=== PATIENT | female | born 1985 | race Caucasian/White ===

== ENCOUNTER → 2016-09-20 | Outpatient (CLI) | payer MEDICAID ==
[~2016-09-20] MED LIST: FAMO20; IBUP-232 PO; OXYC-360 PO; OXYC1TAB63 PO; PRENTAB62 PO
== END ==
LOC: HPND 13:08
PROVIDERS: ATTEND Obstetrics & Gynecology
DX: O26.849 Uterine size-date discrepancy, unspecified trimester (principal); O99.330 Smoking (tobacco) complicating pregnancy, unspecified trimester
CPT/HCPCS: 76816

== ENCOUNTER 2016-10-25 09:57 | Inpatient (IN) | payer MEDICAID ==
[2016-10-25] VITALS (37 sets, daily range): BP systolic 97–143; BP diastolic 43–102; PULSE 56–88; RESP 2–18; TEMP 97.6–98.4
[~2016-10-25] VITALS: Ht 160 cm; Wt 62.6 kg
[~2016-10-25 09:57] MED LIST changes: -IBUP-232 PO; -OXYC1TAB63 PO
[2016-10-25] MEDS ORDERED: OXYTOCIN 30 UNITS-500ML PREMIX 500 ML ONE (10:52)
[2016-10-25] MEDS ORDERED: LACTATED RINGER'S 1000 ML INJ 1,000 ML IV SCH (11:00)
[2016-10-25] MEDS ORDERED: LACTATED RINGER'S 1000 ML INJ 1,000 ML IV PRN (11:18)
[2016-10-25 11:29] LABS: AUTOMATED NEUTROPHIL # 9.7 TH/MM3 (1.8-7.7); BASOPHIL % 0.4 % (0.0-2.0); EOSINOPHIL # 0.1 TH/MM3 (0-0.4); EOSINOPHIL % 1.1 % (0.0-4.0); HEMATOCRIT 35.5 % (35.0-46.0); HEMO FLAGS DIFF FINAL; LYMPH % 18.2 % (9.0-44.0); LYMPHOCYTE # 2.4 TH/MM3 (1.0-4.8); MEAN CELL VOLUME 86.7 FL (80.0-100.0); MEAN CORPUSCULAR HEMOGLOBIN 29.9 PG (27.0-34.0); MEAN CORPUSCULAR HGB CONC 34.5 % (32.0-36.0); MONO % 7.5 % (0.0-8.0); NEUT % 72.8 % (16.0-70.0); PLATELET COUNT 168 TH/MM3 (150-450); RED CELL DISTRIBUTION WIDTH 13.4 % (11.6-17.2); WHITE BLOOD COUNT 13.3 TH/MM3 (4.0-11.0)
[2016-10-25] MEDS ORDERED: SODIUM CHLORID 0.9% 500 ML INJ 500 ML IV PRN (11:30)
[2016-10-25] MEDS ORDERED: OXYTOCIN 30 UNITS-500ML PREMIX 500 ML IV ONE (11:30)
[2016-10-25] MEDS ORDERED: LIDOCAINE HCL 1% 50 ML VIAL INFIL PRN (11:30)
[2016-10-25] MEDS ORDERED: LIDOCAINE HCL 1% 50 ML VIAL I-DERMAL PRN (11:30)
[2016-10-25] MEDS ORDERED: MINERAL OIL 10 ML VIAL TOPICAL PRN (11:30)
[2016-10-25] MEDS ORDERED: CITRIC ACID-SODIUM CITRATE LIQ 30 ML UDC PO SCH (11:30)
[2016-10-25] MEDS ORDERED: SODIUM CHLOR 0.9% 1000 ML INJ 1,000 ML IV PRN (11:38)
[2016-10-25 11:48] LABS: BACTERIA, URINE FEW /hpf; BLOOD, URINE MOD (NEG); COMMENT (UR) CULT NOT INDICATED; CULTURE IF INDICATED CULT NOT INDICATED; GLUCOSE,URINE NEG (NEG); KETONE, URINE NEG (NEG); MUCUS URINE FEW /lpf (OCC); NITRITE,URINE NEG (NEG); SQUAMOUS EPITHELIAL CELL URINE 1 /hpf (0-5); URINE COLOR YELLOW (YELLW/STRAW)
[2016-10-25] MEDS ORDERED: OXYTOCIN 30 UNITS-500ML PREMIX 500 ML IV SCH (12:00)
[2016-10-25] MEDS ORDERED: fentaNYL 2MCG-BUPIV 0.125% INJ 100 ML ONE (12:09)
[2016-10-25] MEDS ORDERED: ePHEDrine/NS 25 MG/5 ML SYR ONE (12:10)
--- NOTE | 2016-10-25 15:14 | HHI.HP ---
HPI Chief Complaint Induction of labor Date Seen: Oct 25, 2016 Travel History International Travel<30 Days: No Contact w/Intl Traveler<30Days: No History of Present Illness HPI Patient is a 31 year old at 40-6/7 weeks gestation who presents today for induction of labor. She has been having contractions every 10 minutes since last night. She denies any vaginal bleeding or discharge. No gush or leaking of fluid. Positive movement. History Past Medical History Medical History: Denies Significant Hx Obstetric History Obstetric History s/p at full term Past Surgical History Narrative Surgical Tonsillectomy Shoulder surgery x 2 Family History Narrative Family History Grandmother with HTN, Leukemia, Breast Cancer Grandfather with DM Type 2 Social History Alcohol Use: No Tobacco Use: Yes (5 cigarettes/day) Substance Abuse: No Allergies-Medications (Allergen,Severity, Reaction): Coded Allergies: Sulfa (Verified Allergy, Severe, Rash, 10/25/16) Home Meds Reported Medications Vitaminplus Plus Tab1 Po 04/11/12 Discontinued Reported Medications Oxycodone/Acetaminophen (Percocet)5 Mg/325 Mg Tab1 Tab PO Q4-6HPRN #30 FOR PAIN 04/14/12 Pepcid 20 Mg Ta20 Mg 20 Mg Tab40 Mg .XX DAILY 04/11/12 Review of Systems Except as stated in HPI: all other systems reviewed are Neg General / Constitutional: No: Fever, Chills Eyes: No: Visual changes HENT: No: Headaches Cardiovascular: No: Chest Pain or Discomfort Respiratory: No: Cough, Short of Breath Gastrointestinal: No: Nausea, Abdominal Pain Genitourinary: Pelvic Pain, No: Dysuria, Discharge, Vaginal Bleeding Musculoskeletal: No: Edema Psychiatric: No: Substance Abuse Physical Exam Narrative GENERAL: Well-nourished, well-developed patient. SKIN: Warm and dry. HEAD: Normocephalic and atraumatic. EYES: No scleral icterus. No injection or drainage. ENT: No nasal drainage noted. Mucous membranes pink. Airway patent. NECK: Supple, trachea midline. No JVD. CARDIOVASCULAR: Regular rate and rhythm without murmurs, gallops, or rubs. RESPIRATORY: Breath sounds equal bilaterally. No accessory muscle use. ABDOMEN/GI: Abdomen soft, non-tender, bowel sounds present, no rebound, no guarding Gravid to 40 weeks size GENITOURINARY: External Genitalia: intact and normal in appearance BUS glands: normal Cervix: posterior Dilatation: 3 Effacement: 90 Station: -1 Presentation: vertex Membranes: intact Uterine Contractions: q 8-10 min FHT's: Category: I Baseline: 120 Reactive: + Variability: moderate Decels: none EXTREMITIES: No cyanosis or edema. BACK: Nontender without obvious deformity. No CVA tenderness. NEUROLOGICAL: Awake and alert. Motor and sensory grossly within normal limits. Normal speech. Data Data Vital Signs Reviewed: Yes Orders Fentanyl Inj (Fentanyl Inj) (10/25/16 10:52) Oxytocin 30 Units-500ml Premix (Pitocin (10/25/16 10:52) Fentanyl Inj (Fentanyl Inj) (10/25/16 10:58) Urinalysis - C+S If Indicated (10/25/16 11:10) Complete Blood Count With Diff (10/25/16 11:10) Abo/Rh Blood Type (10/25/16 11:10) Hold Clot (10/25/16 11:10) Admit To Inpatient (10/25/16 ) Code Status (10/25/16 11:18) Lactated Ringer's 1000 Ml Inj (Lr 1000 M (10/25/16 11:00) Lactated Ringer's 1000 Ml Inj (Lr 1000 M (10/25/16 11:18) Sodium Chlorid 0.9% 500 Ml Inj (Ns 500 M (10/25/16 11:30) Sodium Chlor 0.9% 1000 Ml Inj (Ns 1000 M (10/25/16 11:38) Lidocaine 1% Inj (50 Ml) (Xylocaine 1% I (10/25/16 11:30) Citric Acid-Sodium Citrate Liq (Bicitra (10/25/16 11:30) Resp Oxygen Non Rebreathe Mask (10/25/16 ) Oxytocin 30 Units-500ml Premix (Pitocin (10/25/16 11:30) Lidocaine 1% Inj (50 Ml) (Xylocaine 1% I (10/25/16 11:30) Light Mineral Oil (Muri-Lube Oil) (10/25/16 11:30) Inpatient Certification (10/25/16 ) Fentanyl Inj (Fentanyl Inj) (10/25/16 12:00) Fentanyl Inj (Fentanyl Inj) (10/25/16 12:00) Resp Oxygen Non Rebreathe Mask (10/25/16 ) Oxytocin 30 Units-500ml Premix (Pitocin (10/25/16 12:00) Fentanyl Inj (Fentanyl Inj) (10/25/16 12:01) Fentanyl 2mcg-Bupiv 0.125% Inj (Fentanyl (10/25/16 12:09) Ephedrine/Ns 25 Mg/5 Ml Syr (Ephedrine/N (10/25/16 12:10) Vital Signs (Adult) .QSHIFT (10/25/16 15:03) Activity Oob Ad Lisa (10/25/16 15:03) Ice / Cold Pack PRN (10/25/16 15:03) ^ Discontinue Iv (10/25/16 15:03) ^ Sitz Bath PRN (10/25/16 15:03) ^ Massage (10/25/16 15:03) ^ Rhogam (10/25/16 15:03) Urinary Catheter Management .PRN (10/25/16 15:03) Diet Regular Basic (10/25/16 Dinner) Sodium Chloride 0.9% Flush (Ns Flush) (10/25/16 21:00) Sodium Chloride 0.9% Flush (Ns Flush) (10/25/16 15:15) Acetaminophen (Tylenol) (10/25/16 15:15) Ibuprofen (Motrin) (10/25/16 15:15) Oxycodone-Acetamin 5-325 Mg (Percocet (10/25/16 15:15) Oxycodone-Acetamin 5-325 Mg (Percocet (10/25/16 15:15) Benzocaine 20% Top Spr (Americaine 20% T (10/25/16 15:15) Witch Maria T-Glycerin Pad (Tucks Pads) (10/25/16 15:15) Docusate Sodium-Senna (Rubina-Colace) (10/25/16 15:15) Zolpidem (Ambien) (10/25/16 15:15) Xcmshpc-Lupdf-Cdcvsze Inj (M-M-R Ii Inj) (10/25/16 16:00) Fhjs-Pjv-Ctveeh (Booster) Inj (Boostrix (10/25/16 16:00) Al-Mag Hy-Si 40-40-4 Mg/Ml Liq (Mag-Al P (10/25/16 15:15) Ondansetron Odt (Zofran Odt) (10/25/16 15:15) Labs Laboratory Tests Test 10/25/16 10:08 White Blood Count 13.3 Red Blood Count 4.10 Hemoglobin 12.3 Hematocrit 35.5 Mean Corpuscular Volume 86.7 Mean Corpuscular Hemoglobin 29.9 Mean Corpuscular Hemoglobin 34.5 Concent Red Cell Distribution Width 13.4 Platelet Count 168 Mean Platelet Volume 8.7 Neutrophils (%) (Auto) 72.8 Lymphocytes (%) (Auto) 18.2 Monocytes (%) (Auto) 7.5 Eosinophils (%) (Auto) 1.1 Basophils (%) (Auto) 0.4 Neutrophils # (Auto) 9.7 Lymphocytes # (Auto) 2.4 Monocytes # (Auto) 1.0 Eosinophils # (Auto) 0.1 Basophils # (Auto) 0.0 CBC Comment DIFF FINAL Differential Comment Urine Color YELLOW Urine Turbidity HAZY Urine pH 7.0 Urine Specific [place] 1.011 Urine Protein NEG Urine Glucose (UA) NEG Urine Ketones NEG Urine Occult Blood MOD Urine Nitrite NEG Urine Bilirubin NEG Urine Urobilinogen LESS THAN 2.0 Urine Leukocyte Esterase TRACE Urine RBC LESS THAN 1 Urine WBC 4 Urine Squamous Epithelial 1 Cells Urine Bacteria FEW Urine Mucus FEW Microscopic Urinalysis Comment CULT NOT INDICATED Blood Type O POSITIVE Blood Bank Comment Band and Hold Assessment/Plan Assessment and Plan 31 year old at 40-6/7 weeks gestation. 1. IUP- Category I tracing, reassuring. Continue routine obstetric care. 2. IOL- Post-dates, AROM with clear fluid, augment with Pitocin 3. GBS negative 4. Anticipate dw Isabella Basurto MD R2 Oct 25, 2016 15:14
[2016-10-25] MEDS ORDERED: ZOLPIDEM TARTRATE 5 MG TAB PO PRN (15:15)
[2016-10-25] MEDS ORDERED: DOCUSATE SODIUM 50 MG/SENNA 8.6 MG TAB PO PRN (15:15)
[2016-10-25] MEDS ORDERED: ALUMINUM/MAGNESIUM/SIMETH 30 ML CUP PO PRN (15:15)
[2016-10-25] MEDS ORDERED: SODIUM CHLORIDE 0.9% FLUSH 5 ML FLUSH IV PRN (15:15)
[2016-10-25] MEDS ORDERED: WITCH HAZEL 50%/GLYCERIN 12.5% 40 PAD JAR TOPICAL PRN (15:15)
[2016-10-25] MEDS ORDERED: ONDANSETRON ODT 4 MG TAB PO PRN (15:15)
[2016-10-25] MEDS ORDERED: BENZOCAINE 20% TOPICAL SPRAY 60 ML CAN TOPICAL PRN (15:15)
[2016-10-25] MEDS ORDERED: ACETAMINOPHEN 325 MG TAB PO PRN (15:15)
--- NOTE | 2016-10-25 15:15 | PD.OB.DELI ---
Delivery Date: Oct 25, 2016 Anesthesia: Epidural Episiotomy: None Vaginal Delivery: Normal Presentation: Occiput anterior, Compound (right hand) Nuchal Cord: None Delayed cord clamping (45 sec): Yes Infant: Male One Minute : 8 Five Minute : 9 Weight: 3445g Infant Care: Suctioned, Spontaneous crying, Responded to stimulation Placenta: Spontaneous delivery, Intact, 3 vessel cord Laceration: No lacerations Additional Information EBL 250cc Baby Zbigniew Isaeblla Nava MD R2 Oct 25, 2016 15:15
[2016-10-25] MEDS: IBUPROFEN 600 MG TAB PO PRN ×2 (15:55→22:55)
[2016-10-25] MEDS ORDERED: MEASLES, MUMPS, RUBELLA VACCINE 0.5 ML VIAL SQ ONE (16:00)
[2016-10-25] MEDS ORDERED: DIPHTH/TETANUS/ACEL PERTUSSIS (BOOSTER) 0.5 ML VIAL/PFS IM ONE (16:00)
[2016-10-25] MEDS: oxyCODONE/ACETAMINOPHEN 5 MG/325 MG TAB PO PRN ×2 (18:38→22:56)
[2016-10-25] MEDS: SODIUM CHLORIDE 0.9% FLUSH 5 ML FLUSH IV SCH (21:00)
[2016-10-26] MEDS: oxyCODONE/ACETAMINOPHEN 5 MG/325 MG TAB PO PRN ×6 (03:29→23:42)
[2016-10-26] MEDS: IBUPROFEN 600 MG TAB PO PRN ×3 (06:08→19:10)
[2016-10-26 07:53] VITALS: BP 97/57; PULSE 67; RESP 18; TEMP 98.2
--- NOTE | 2016-10-26 09:17 | HHI.OB ---
Subjective Post Day: 1 Objective Vitals/I&O Vital Signs Date Time Temp Pulse Resp B/P Pulse Ox O2 Delivery O2 Flow Rate FiO2 10/26/16 07:53 98.2 67 18 10/26/16 07:53 97/57 10/26/16 07:38 18 10/25/16 20:15 98.3 10/25/16 20:15 67 18 103/52 10/25/16 17:00 98.4 63 18 104/55 10/25/16 16:15 69 107/68 10/25/16 16:05 97.6 2 10/25/16 16:01 80 116/52 10/25/16 15:45 64 114/71 10/25/16 15:30 67 112/65 10/25/16 15:16 70 112/64 10/25/16 15:07 74 120/86 10/25/16 14:30 80 112/63 10/25/16 14:25 68 10/25/16 14:20 88 10/25/16 14:15 75 10/25/16 14:00 60 104/49 10/25/16 13:30 60 99/57 10/25/16 13:20 60 97/46 10/25/16 13:19 62 97/46 10/25/16 13:17 63 98/47 10/25/16 13:15 60 10/25/16 13:11 56 100/43 10/25/16 13:10 64 10/25/16 13:05 117/64 10/25/16 13:05 63 10/25/16 13:00 118/60 10/25/16 13:00 60 10/25/16 12:57 63 134/77 10/25/16 12:55 66 116/73 10/25/16 12:55 63 10/25/16 12:52 74 120/83 10/25/16 12:50 73 10/25/16 12:49 80 143/102 10/25/16 12:45 71 10/25/16 12:40 63 10/25/16 12:35 76 10/25/16 12:30 77 10/25/16 12:25 61 10/25/16 12:23 60 133/64 10/25/16 12:20 68 10/25/16 12:15 68 10/25/16 12:10 68 124/57 Objective Remarks GENERAL: Well-nourished, well-developed patient. CARDIOVASCULAR: Regular rate and rhythm without murmurs, gallops, or rubs. RESPIRATORY: Breath sounds equal bilaterally. No accessory muscle use. ABDOMEN/GI: Abdomen soft, non-tender. Fundus: Firm, non-tender at umbilicus. GENITOURINARY: Light to moderate bleeding. EXTREMITIES: No cyanosis or edema, non-tender, without signs of DVT. Medications and IVs Current Medications Medications (Trade) Dose Ordered Sig/Erwin Route Start Time Stop Time Status Last Admin (NS Flush) 2 ml BID IV 10/25/16 21:00 (NS Flush) 2 ml UNSCH PRN IV 10/25/16 15:15 (Tylenol) 650 mg Q4H PRN PO 10/25/16 15:15 (Motrin) 600 mg Q6H PRN PO 10/25/16 15:15 10/26/16 06:08 (Percocet 5-325 Mg) 1 tab Q4H PRN PO 10/25/16 15:15 10/26/16 03:29 (Percocet 5-325 Mg) 2 tab Q4H PRN PO 10/25/16 15:15 10/26/16 07:34 (Americaine 20% Top Spr) 1 spray Q4H PRN TOPICAL 10/25/16 15:15 (Tucks Pads) 1 applic QID PRN TOPICAL 10/25/16 15:15 10/25/16 18:05 (Rubina-Colace) 2 tab Q12H PRN PO 10/25/16 15:15 (Ambien) 5 mg HS PRN PO 10/25/16 15:15 (Mag-Al Plus Susp Liq) 15 ml Q8H PRN PO 10/25/16 15:15 (Zofran Odt) 4 mg Q6H PRN PO 10/25/16 15:15 Assessment/Plan Problem List: (1) Normal vaginal delivery Plan: ROUTINE Assessment and Plan DAY 1 PT DOING WELL AND BONDING PAIN WELL CONTROLLED WITH ORAL PAIN MEDICATION ROUTINE Discharge Planning DC HOME TOMORROW Jagruti Raines Oct 26, 2016 09:17
--- NOTE | 2016-10-26 09:38 | HHI.DCPOC ---
Discharge Care Plan Diagnosis: (1) Normal vaginal delivery Your Health Problems Are: Vaginal delivery Report Symptoms to Your Doctor -Temperate above 100.5 degrees -Redness, of incision or excessive or foul smelling drainage -Unusual pain or calf pain -Increased vaginal bleeding -Painful or difficulty urinating -Feelings of extreme sadness or anxiety after 2 weeks Goals to Promote Your Health * To prevent worsening of your condition and complications * To maintain your health at the optimal level Directions to Meet Your Goals Take your medications as prescribed Follow your dietary instruction Follow activity as directed Ensure plenty of rest for recovery Drink fluids for hydration Keep your appointments as scheduled Take your immunizations and boosters as scheduled If your symptoms worsen call your PCP, if no PCP go to Urgent Care Center or Emergency Room Smoking is Dangerous to Your Health. Avoid second hand smoke Call the 24-hour crisis hotline for domestic abuse at Jagruti Raines Oct 26, 2016 09:38
--- NOTE | 2016-10-26 09:49 | HHI.DS ---
Admission Date Oct 25, 2016 at 09:57 Admitting Diagnosis TERM EARLY LABOR INDUCTION Diagnosis: (1) Normal vaginal delivery Diagnosis: Principal Delivery Date: Oct 25, 2016 Vaginal Delivery: Normal : Male Brief History Patient is a 31 year old at 40-6/7 weeks gestation who presents today for induction of labor. She has been having contractions every 10 minutes since last night. She denies any vaginal bleeding or discharge. No gush or leaking of fluid. Positive movement. Hospital Course TERM AROM, INDUCTION ROUTINE Pt Condition on Discharge: Good Discharge Disposition: Discharge Home Discharge Instructions Diet Instructions: As Tolerated, No Restrictions Additional Diet Instructions: Drink at least 8 - 16 oz bottles of water a day Activities You Can Perform: Shower Only-No Bath, Sitz Bath Activities to Avoid: Lifting/Bending, Sexual Activity Additional Activity Instruc.: No driving until off pain medications Do not lift anything heavier than your baby in an carrier Follow up Referrals: [facility] - 2 Weeks @ [facility] Jagruti Raines Oct 26, 2016 09:49
[2016-10-26] MEDS ORDERED: IBUP-232 PO (13:43)
[2016-10-26] MEDS ORDERED: OXYC1TAB63 PO (13:43)
[2016-10-26 17:38] VITALS: RESP 18
[2016-10-26] MEDS: SODIUM CHLORIDE 0.9% FLUSH 5 ML FLUSH IV SCH (21:00)
--- NOTE | 2016-10-27 01:22 | HHI.OB ---
Subjective Post Day: 2 Remarks no complaints Objective Vitals/I&O Vital Signs Date Time Temp Pulse Resp B/P Pulse Ox O2 Delivery O2 Flow Rate FiO2 10/26/16 17:38 18 10/26/16 13:33 16 10/26/16 07:53 98.2 67 18 10/26/16 07:53 97/57 Objective Remarks GENERAL: Well-nourished, well-developed patient. CARDIOVASCULAR: Regular rate and rhythm without murmurs, gallops, or rubs. RESPIRATORY: Breath sounds equal bilaterally. No accessory muscle use. ABDOMEN/GI: Abdomen soft, non-tender. Fundus: Firm, non-tender at umbilicus. GENITOURINARY: Light bleeding. EXTREMITIES: No cyanosis or edema, non-tender, without signs of DVT. Medications and IVs Current Medications Medications (Trade) Dose Ordered Sig/Erwin Route Start Time Stop Time Status Last Admin (NS Flush) 2 ml BID IV 10/25/16 21:00 (NS Flush) 2 ml UNSCH PRN IV 10/25/16 15:15 (Tylenol) 650 mg Q4H PRN PO 10/25/16 15:15 (Motrin) 600 mg Q6H PRN PO 10/25/16 15:15 10/26/16 19:10 (Percocet 5-325 Mg) 1 tab Q4H PRN PO 10/25/16 15:15 10/26/16 03:29 (Percocet 5-325 Mg) 2 tab Q4H PRN PO 10/25/16 15:15 10/26/16 23:42 (Americaine 20% Top Spr) 1 spray Q4H PRN TOPICAL 10/25/16 15:15 (Tucks Pads) 1 applic QID PRN TOPICAL 10/25/16 15:15 10/25/16 18:05 (Rubina-Colace) 2 tab Q12H PRN PO 10/25/16 15:15 (Ambien) 5 mg HS PRN PO 10/25/16 15:15 (Mag-Al Plus Susp Liq) 15 ml Q8H PRN PO 10/25/16 15:15 (Zofran Odt) 4 mg Q6H PRN PO 10/25/16 15:15 Assessment/Plan Problem List: (1) Normal vaginal delivery Plan: ROUTINE Assessment and Plan DAY 2 PT DOING WELL AND BONDING PAIN WELL CONTROLLED WITH ORAL PAIN MEDICATION D/C TO HOME TODAY Discharge Planning HOME TODAY Lilliam Rodriguez MD Oct 27, 2016 01:22
[2016-10-27] MEDS: IBUPROFEN 600 MG TAB PO PRN ×2 (01:58→08:24)
[2016-10-27] MEDS: oxyCODONE/ACETAMINOPHEN 5 MG/325 MG TAB PO PRN ×2 (04:20→08:23)
== END 2016-10-27 13:00 | disposition home or self-care (01) | DRG 775 ==
LOC: H2EB 09:57 → H1EA 16:51
PROVIDERS: ADMIT Obstetrics & Gynecology; ATTEND Obstetrics & Gynecology
PROC: 10E0XZZ Delivery of Products of Conception, External Approach (ICD-10-PCS; principal; 2016-10-25)
PROC: 10907ZC Drainage of Amniotic Fluid, Therapeutic from Products of Conception, Via Natural or Artificial Opening (ICD-10-PCS; 2016-10-25)
DX: O48.0 Post-term pregnancy (principal); O32.6XX0 Maternal care for compound presentation, not applicable or unspecified; O99.334 Smoking (tobacco) complicating childbirth; Z37.0 Single live birth; Z3A.40 40 weeks gestation of pregnancy; Z88.2 Allergy status to sulfonamides
CPT/HCPCS: 81001; 85025; 86900; 86901; 90715; J2590; J3010; J7120